=== PATIENT | male | born 1980 | race African-American/Black ===

== ENCOUNTER 2017-11-01 09:37 | Emergency (ER) | payer SELFPAY ==
[~2017-11-01] VITALS: Ht 180.3 cm; Wt 90.3 kg
[2017-11-01 10:06] VITALS: BP 131/74
[2017-11-01] MEDS ORDERED: PANTOPRAZOLE 40 MG TAB PO ONE (11:00)
[2017-11-01 11:24] LABS: Basophils # (auto) 0.1 uL; Basophils % (auto) 0.7 % (0.0-2.0); Eosinophils # (auto) 0.1 uL; Hemoglobin 13.7 g/dL (13.5-17.5); Lymphocytes # (auto) 2.1 uL; Lymphocytes % (auto) 23.9 % (10.0-50.0); Mean Corpuscular Hemoglobin 30.2 pg (28.0-32.0); Mean Corpuscular Hgb Conc. 33.5 g/dL (32.0-36.0); Mean Corpuscular Volume 90.3 fL (80.0-100.0); Mean Platelet Volume 7.1 fL (6.9-10.8); Monocytes # (auto) 0.6 uL; Monocytes % (auto) 6.9 % (0.0-12.0); Neutrophils % (auto) 67.5 % (37.0-80.0); Platelet Count (auto) 346 10^3/uL (140-450); Red Cell Distribution Width 13.2 % (11.8-14.3)
== END 2017-11-01 11:58 | disposition home or self-care (01) ==
LOC: ER 09:37
DX: F17.210 Nicotine dependence, cigarettes, uncomplicated (principal); F12.10 Cannabis abuse, uncomplicated
CPT/HCPCS: 36415; 74176; 85025

== ENCOUNTER 2018-04-22 08:40 | Emergency (ER) | payer MEDICAID ==
[~2018-04-22] VITALS: Ht 180.3 cm; Wt 91.6 kg
[2018-04-22 08:47] VITALS: BP 140/87
== END 2018-04-22 09:19 | disposition home or self-care (01) ==
LOC: ER 08:40
DX: H10.33 Unspecified acute conjunctivitis, bilateral (principal); F17.210 Nicotine dependence, cigarettes, uncomplicated; F12.10 Cannabis abuse, uncomplicated

== ENCOUNTER 2021-05-03 00:26 | Emergency (ER) | payer MEDICAID | END 2021-05-03 00:40 | disposition left against medical advice (07) | LOC: ER 00:26 | DX: Z53.21 Procedure and treatment not carried out due to patient leaving prior to being seen by health care provider (principal) ==